=== PATIENT | female | born 1975 | race Caucasian/White ===

== ENCOUNTER 2018-05-11 10:49 | Outpatient (REF) | payer MEDICAID, SELFPAY ==
[2018-05-11 13:07] LABS: HCT 45.1 % (36.0-46.0); HGB 15.1 g/dL (12.0-15.5); Mean Corp. HGB Concentration 33.5 g/dL (32.0-36.0); Mean Corpuscular Hemoglobin 34.6 pg (27.0-33.0); Mean Corpuscular Volume 103.2 fL (80-95); Mean Platelet Volume 8.6 fL (8.0-11.0); Platelet Count 467 x1000/uL (130-400); RBC 4.37 m/cumm (4.00-5.20); RBC Distribution Width 13.5 % (11.7-14.6); White Blood Cell Count 9.95 k/cumm (4.4-10.8)
[2018-05-11 13:08] LABS: ALT 22 U/L (12-78); AST 20 U/L (15-37); Albumin 3.5 g/dL (3.4-5.0); Alkaline Phosphatase 67 U/L (46-116); Anion Gap 9.5 mmol/L (3-11); BUN 9 mg/dL (7-18); Bilirubin, Total 0.4 mg/dL (0.2-1.0); CO2 26.5 mmol/L (21.0-32.0); CREATININE 0.76 mg/dL (0.55-1.02); Chloride 103 mmol/L (98-107); Glucose 80 mg/dL (70-100); Potassium 4.3 mmol/L (3.5-5.1); Sodium 139 mmol/L (136-145); Total Protein 6.9 g/dL (6.4-8.2)
== END 2018-05-11 11:09 ==
LOC: NCHCN 10:49
PROVIDERS: PCP Nurse Practitioner; Visit Provider Nurse Practitioner
DX: N92.4 Excessive bleeding in the premenopausal period (principal); E87.6 Hypokalemia
CPT/HCPCS: 80053; 85027

== ENCOUNTER 2018-05-23 16:04 | Outpatient (REF) | payer MEDICAID, SELFPAY ==
--- NOTE | 2018-05-23 15:45 | PAPFT_PTH ---
PATIENT: Beena Powell LOC: [facility] U#:[id number] AGE/SX: 42/F ROOM: RE05/23/[address]: CHERYL Matt : 1975 BED: DIS: 05/23/2018 SPEC #: [id number] RECD: 05/23/18 18:18 STATUS: LXEYNahomy REQ #: [id number] SPRING: 05/23/18 15:[address]: Olinda Barrett DEPT: [facility] Cytology RECD BY: Guillermina Kenyon ENTERED: 05/23/18 18:18 SP TYPE: PAPFT OTHR DR: Juana Olson Tissues: 1 - CX/ENDOCX FOR PAP SMEARS Procedures: PAP THIN PREP/UVM Screening HPV DNA PROBE Comments: [id number]
[2018-05-25 15:58] LABS: Chlamydia Result Negative; GC Result Negative; Specimen Description CERVIX
== END 2018-05-23 16:24 ==
LOC: LBN 16:04
PROVIDERS: PCP Nurse Practitioner; Visit Provider Nurse Practitioner Family
DX: Z12.4 Encounter for screening for malignant neoplasm of cervix (principal); Z11.51 Encounter for screening for human papillomavirus (HPV); Z11.3 Encounter for screening for infections with a predominantly sexual mode of transmission
CPT/HCPCS: 87491; 87591; 88142; 87624

== ENCOUNTER 2018-05-23 16:08 | Outpatient (CLI) | payer MEDICAID, SELFPAY ==
[2018-05-23 17:38] LABS: TSH (W/Ref FT4) 2.78 uIU/mL (0.358-3.74)
== END 2018-05-23 16:28 ==
PROVIDERS: PCP Nurse Practitioner; Visit Provider Nurse Practitioner Family
DX: N92.6 Irregular menstruation, unspecified (principal)
CPT/HCPCS: 36415; 84443

== ENCOUNTER 2018-06-10 01:42 | Outpatient (CLI) | payer MEDICAID, SELFPAY ==
--- NOTE | 2018-06-10 13:08 | DI.US_ITS ---
SYMPTOMS/DIAGNOSIS: ABNORMAL VAGINAL BLEEDING, N93.9 PELVIC ULTRASOUND: Transabdominal and transvaginal examination was performed. The uterus is retroverted. The uterus measures 8 cm long x 5.4 cm AP x 6.3 cm transverse. The endometrial stripe is thickened at 1.7 cm. No abnormal increased blood flow or discrete mass is present. The right ovary measures 1.6 x 1.3 x 1.6 cm. There is a 1.4 cm simple cyst on the right ovary. There is normal blood flow to the right ovary. No evidence of torsion is seen. The left ovary measures 1.9 x 1.2 x 1.7 cm. There is normal blood flow. No evidence of torsion. There is a 1.4 x 1.2 x 1.4 cm involutional cyst present. No significant free pelvic fluid or hydronephrosis is identified. IMPRESSION: Thickened endometrial stipe without discrete mass. A follow-up pelvic ultrasound is requested for reevaluation. The follow-up examination should be obtained in six to eight weeks.
== END 2018-06-10 02:02 ==
PROVIDERS: PCP Nurse Practitioner; Visit Provider Nurse Practitioner Family
DX: N93.9 Abnormal uterine and vaginal bleeding, unspecified (principal); R93.89 Abnormal findings on diagnostic imaging of other specified body structures
CPT/HCPCS: 76830; 76856

== ENCOUNTER 2018-06-24 14:58 | Outpatient (REF) | payer MEDICAID, SELFPAY ==
--- NOTE | 2018-06-24 13:50 | ENDOMET_PTH ---
PATIENT: Beena Powell LOC: [facility] U#:[id number] AGE/SX: 42/F ROOM: RE06/24/[address]: Randy Cruz MD : 1975 BED: DIS: 06/24/2018 SPEC #: [id number] RECD: 06/24/18 17:43 STATUS: DEVANTE REQ #: [id number] SPRING: 06/24/18 13:[address]: Randy Cruz DEPT: Surgical Specimen RECD BY: Guillermina Kenyon ENTERED: 06/24/18 17:45 SP TYPE: Endomet OTHR DR: Olinda Barrett, HIV/AIDS CARE NURSEJuana Oquendo Tissues: 1 - ENDOMETRIUM BX/CURRETTE 2 - CERVICAL BIOPSY 3 - ENDOCERVICAL BX/CURRETTE Procedures: GROSS AND MICRO LEVEL 4 Comments: [id number]
== END 2018-06-24 15:18 ==
LOC: LBN 14:58
PROVIDERS: PCP Nurse Practitioner; Visit Provider Obstetrics & Gynecology
DX: N85.8 Other specified noninflammatory disorders of uterus (principal); R87.612 Low grade squamous intraepithelial lesion on cytologic smear of cervix (LGSIL); B97.7 Papillomavirus as the cause of diseases classified elsewhere; N93.9 Abnormal uterine and vaginal bleeding, unspecified
CPT/HCPCS: 88305

== ENCOUNTER 2019-07-03 11:27 | Outpatient (CLI) | payer MEDICAID, SELFPAY ==
--- NOTE | 2019-07-03 10:01 | DI.RAD_ITS ---
EXAM: XR SHOULDER LT COMPLETE 2+V INDICATION: LT SHOULDER PAIN, M25.512. COMPARISON: No exams were available for comparison TECHNIQUE: 2D digital imaging was performed. FINDINGS: There is no significant AC joint spurring or evidence of AC joint widening. The glenohumeral joint a ppears intact. No tendon or joint space calcifications are seen. No rib fractures or pneumothorax i s seen. IMPRESSION: Negative left shoulder.
== END 2019-07-03 11:47 ==
PROVIDERS: PCP Nurse Practitioner; Visit Provider Nurse Practitioner
DX: M25.512 Pain in left shoulder (principal)
CPT/HCPCS: 73030

== ENCOUNTER 2019-08-24 11:26 | Outpatient (REF) | payer MEDICAID, SELFPAY ==
[2019-08-28 12:06] LABS: COVID-19 RT-PCR Result Not Detected (NotDetected)
== END 2019-08-24 11:46 ==
LOC: NCHCN 11:26
PROVIDERS: PCP Nurse Practitioner; Visit Provider Physician Assistant
DX: Z20.828 Contact with and (suspected) exposure to other viral communicable diseases (principal); R05 Cough
CPT/HCPCS: U0003

== ENCOUNTER 2019-11-13 14:00 | Outpatient (CLI) | payer MEDICAID, SELFPAY ==
--- NOTE | 2019-11-13 | DI.RAD_ITS ---
EXAM: XR CHEST 2V PA LATERAL CLINICAL HISTORY: ASTHMA J45.909 TECHNIQUE: 2D digital imaging was performed. COMPARISON: No exams were available for comparison FINDINGS: MEDIASTINUM: Normal. HEART: Normal. PULMONARY VASCULATURE: Normal. LUNGS: Clear. There is hyperexpansion of the lungs suggesting underlying COPD. PLEURAL SPACE: No pleural effusion or pneumothorax. BONE:Normal. OTHER FINDINGS:Normal. IMPRESSION: Hyperexpansion of the lungs suggesting underlying COPD. DATA REPOSITORY: RADIATION DOSE DELIVERED:
== END 2019-11-13 14:20 ==
PROVIDERS: PCP Nurse Practitioner; Visit Provider Internal Medicine
DX: J45.909 Unspecified asthma, uncomplicated (principal); J44.9 Chronic obstructive pulmonary disease, unspecified
CPT/HCPCS: 71046

== ENCOUNTER 2019-11-20 08:20 | Outpatient (CLI) | payer MEDICAID, SELFPAY ==
[2019-11-21 14:18] LABS: COVID-19 RT-PCR UVMMC Result Negative (Negative)
== END 2019-11-20 08:40 ==
PROVIDERS: PCP Nurse Practitioner; Visit Provider Family Medicine
DX: Z11.59 Encounter for screening for other viral diseases (principal)
CPT/HCPCS: U0003

== ENCOUNTER 2019-11-22 04:20 | Outpatient (CLI) | payer MEDICAID, SELFPAY ==
--- NOTE | 2019-11-23 08:44 | W.PFT ---
Date of service: 11/22/19 Time of Service: 10:22 Pulmonary Function Test Result Interpretation Spirometry: very severe Obstructive airways disease with some but not significant bronchodilator response Impression Extremely severe obstructive airways disease with some but not significant bronchodilator response. Clinical correlation recommended. Clinical Correlation therefore is recommended.
== END 2019-11-22 04:40 ==
PROVIDERS: PCP Nurse Practitioner; Visit Provider Internal Medicine
DX: J45.909 Unspecified asthma, uncomplicated (principal); R06.09 Other forms of dyspnea; F17.210 Nicotine dependence, cigarettes, uncomplicated
CPT/HCPCS: 94060

== ENCOUNTER 2020-04-26 11:48 | Outpatient (REF) | payer MEDICAID, SELFPAY | END 2020-04-26 12:08 | LOC: NCHCN 11:48 | PROVIDERS: PCP Nurse Practitioner; Visit Provider Nurse Practitioner | DX: N92.6 Irregular menstruation, unspecified (principal); N93.8 Other specified abnormal uterine and vaginal bleeding | CPT/HCPCS: 84443 ==

== ENCOUNTER 2020-11-11 13:39 | Outpatient (REF) | payer MEDICAID, SELFPAY ==
[2020-11-11 16:02] LABS: ALT 61 U/L (14-59); AST 70 U/L (15-37); Albumin 3.3 g/dL (3.4-5.0); Alkaline Phosphatase 99 U/L (46-116); Anion Gap 12.9 mmol/L (3-11); BUN 3 mg/dL (7-18); Bilirubin, Total 0.4 mg/dL (0.2-1.0); CO2 24.1 mmol/L (21.0-32.0); CREATININE 0.6 mg/dL (0.55-1.02); Calculated LDL 62 mg/dL (<100); Chloride 101 mmol/L (98-107); Cholesterol 174 mg/dL (<200); Glucose 81 mg/dL (74-106); HDL Cholesterol 100 mg/dL (40-60); Potassium 3.7 mmol/L (3.5-5.1); Sodium 138 mmol/L (136-145); TSH (W/Ref FT4) 1.04 uIU/mL (0.36-3.74); Triglyceride 63 mg/dL (<150)
== END 2020-11-11 13:40 | disposition home or self-care (01) ==
LOC: NCHCN 13:39
PROVIDERS: PCP Nurse Practitioner; Visit Provider Nurse Practitioner
DX: E03.9 Hypothyroidism, unspecified (principal); F32.9 Major depressive disorder, single episode, unspecified; J45.50 Severe persistent asthma, uncomplicated; Z13.220 Encounter for screening for lipoid disorders
CPT/HCPCS: 80053; 80061; 84443

== ENCOUNTER 2020-12-20 11:25 | Outpatient (REF) | payer MEDICAID, SELFPAY ==
[2020-12-20 14:48] LABS: ALT 40 U/L (14-59); AST 48 U/L (15-37); Albumin 3.3 g/dL (3.4-5.0); Alkaline Phosphatase 88 U/L (46-116); Bilirubin, Direct 0.2 mg/dL (0.0-0.2); Bilirubin, Total 0.5 mg/dL (0.2-1.0)
== END 2020-12-20 11:26 | disposition home or self-care (01) ==
LOC: NCHCN 11:25
PROVIDERS: PCP Nurse Practitioner; Visit Provider Nurse Practitioner
DX: R79.89 Other specified abnormal findings of blood chemistry (principal)
CPT/HCPCS: 80076

== ENCOUNTER 2021-08-29 20:42 | Outpatient (REF) | payer MEDICAID, SELFPAY ==
[2021-08-29 19:46] LABS: Abs Immature Grans 0.03 10^3/uL (0.0-0.06); Absolute Basophil Count 0.06 10^3/uL (0.0-0.2); Absolute Eosinophil Count 0.02 10^3/uL (0.0-0.7); Absolute Lymphocyte Count 3.22 10^3/uL (1.2-3.4); Absolute Monocyte Count 0.67 10^3/uL (0.1-0.8); Absolute Neutrophil Count 3.28 10^3/uL (1.2-6.7); Basophils % 0.8; Eosinophils % 0.3; HCT 43.3 % (36.0-46.0); HGB 14.4 g/dL (11.2-15.7); Immature Grans % 0.4; Lymphocytes % 44.2; MCH 34.3 pg (27.0-33.0); MCHC 33.3 % (32.0-36.0); MCV 103.1 fL (80-95); Monocytes % 9.2; Neutrophils % 45.1; Nucleated RBC 0 %; Platelet Count 357 10^3/uL (130-400); RDW 12.6 % (11.7-14.6); RDW-SD 47.8 fL; WBC 7.28 10^3/uL (4.4-10.8)
[2021-08-29 20:15] LABS: ALT 17 U/L (14-59); AST 25 U/L (15-37); Albumin 3.6 g/dL (3.4-5.0); Alkaline Phosphatase 89 U/L (46-116); Anion Gap 14.1 mmol/L (3-11); BUN 4 mg/dL (7-18); Bilirubin, Total 0.3 mg/dL (0.2-1.0); C-Reactive Protein 0.47 mg/dL (0.0-0.3); CO2 19.9 mmol/L (21.0-32.0); CREATININE 0.6 mg/dL (0.55-1.02); Calcium 8.5 mg/dL (8.5-10.1); Chloride 99 mmol/L (98-107); Glucose 77 mg/dL (74-106); Potassium 3.7 mmol/L (3.5-5.1); Sodium 133 mmol/L (136-145); Total Protein 6.9 g/dL (6.4-8.2)
[2021-08-29 20:48] LABS: ESR 14 mm/hr (0-20)
[2021-08-30 22:12] LABS: Rheumatoid Factor <8.6 IU/mL (<12.0)
[2021-09-01 11:24] LABS: Lyme Ab w Rflx to Lyme Confirm Negative (Negative)
[2021-09-01 14:58] LABS: ANA Interpretation Negative (Negative)
[2021-09-02 18:41] LABS: Anaplasma phagocytophilum Negative (Negative); B. miyamotoi PCR Negative (Negative); Babesia divergens/MO-1 Negative (Negative); Babesia duncani Negative (Negative); Babesia microti Negative (Negative); Ehrlichia chaffeensis Negative (Negative); Ehrlichia ewingii/canis Negative (Negative); Ehrlichia muris eauclairensis Negative (Negative)
== END 2021-08-29 20:43 | disposition home or self-care (01) ==
LOC: NCHCN 20:42
PROVIDERS: PCP Nurse Practitioner; Visit Provider Nurse Practitioner Family
DX: R79.89 Other specified abnormal findings of blood chemistry (principal); M25.59 Pain in other specified joint
CPT/HCPCS: 80053; 85652; 87798; 85025; 86038; 86140; 86431; 86618

== ENCOUNTER 2021-10-21 11:48 | Outpatient (CLI) | payer MEDICAID, SELFPAY ==
--- NOTE | 2021-10-21 11:15 | DI.RAD_ITS ---
Exam(s) XR SHOULDER LT COMPLETE 2+V EXAM: XR SHOULDER LT COMPLETE 2+V CLINICAL HISTORY: left shoulder pain. TECHNIQUE: 2D digital imaging was performed. COMPARISON: CR XR SHOULDER LT COMPLETE 2+V from 07/03/2019 FINDINGS: Two views There is no evidence of fracture or dislocation. However, there is slight upward subluxation of the humeral head in the glenoid fossa when compared to the June 2019 study. The subacromial space its elf is not diminished and there is no calcifications therein. No obvious degenerative changes in the glenohumeral joint. Minimal degenerative changes in the AC joint. No significant osseous lesions. Bone density is normal. IMPRESSION: Mild upward subluxation of the humeral head in the glenoid fossa but without significant diminution o f the subacromial space. DATA REPOSITORY: RADIATION DOSE DELIVERED:
== END 2021-10-21 11:49 | disposition home or self-care (01) ==
LOC: DIORS 11:49
PROVIDERS: PCP Nurse Practitioner Family; Referring Provider Nurse Practitioner Family; Visit Provider Student in an Organized Health Care Education/Training Program
DX: M25.512 Pain in left shoulder (principal); S43.082A Other subluxation of left shoulder joint, initial encounter
CPT/HCPCS: 73030

== ENCOUNTER → 2021-11-10 02:21 | Outpatient (CLI) | payer MEDICAID, SELFPAY ==
--- NOTE | 2021-11-10 08:30 | DI.MRI_ITS ---
Exam(s) MR UPPER JOINT LT WO EXAM: MR UPPER JOINT LT WO CLINICAL HISTORY: LEFT SHOULDER PAIN,bursitis, cervical radiculopathy,m75.52,m54.12. TECHNIQUE: Multiplanar multisequence MRI was performed. COMPARISON: None. FINDINGS: The exam is limited due to patient motion. There is no fracture or contusion pattern. The acromioclavicular joint is normal. No subacromial, subcoracoid or glenohumeral joint effusion is present. The supraspinatus tendonappears intact. The infraspinatus tendon is intact. The subscapularis and teres minor tendons are normal. The biceps tendon is normally located. . The labrum is grossly normal. IMPRESSION: Limited exam due to patient motion. No evidence of rotator cuff tear. DATA REPOSITORY:
== END ==
PROVIDERS: PCP Nurse Practitioner Family; Visit Provider Student in an Organized Health Care Education/Training Program
DX: M54.12 Radiculopathy, cervical region (principal); M75.52 Bursitis of left shoulder
CPT/HCPCS: 73221

== ENCOUNTER 2022-03-18 18:32 | Outpatient (REF) | payer MEDICAID, SELFPAY ==
[2022-03-18 15:14] LABS: Abs Immature Grans 0.06 10^3/uL (0.0-0.06); Absolute Basophil Count 0.08 10^3/uL (0.0-0.2); Absolute Lymphocyte Count 3.83 10^3/uL (1.2-3.4); Absolute Monocyte Count 0.98 10^3/uL (0.1-0.8); Basophils % 0.7; Eosinophils % 0.4; HCT 41.3 % (36.0-46.0); HGB 14.1 g/dL (11.2-15.7); Immature Grans % 0.5; Lymphocytes % 34.2; MCH 35.5 pg (27.0-33.0); MCHC 34.1 % (32.0-36.0); MCV 104 fL (80-95); MPV 8.7 fL (8.0-11.0); Monocytes % 8.7; Neutrophils % 55.5; Platelet Count 359 10^3/uL (130-400); RBC 3.97 10^6/uL (3.93-5.22); RDW 13.3 % (11.7-14.6); RDW-SD 50.9 fL; WBC 11.21 10^3/uL (4.4-10.8)
[2022-03-18 15:16] LABS: Absolute Eosinophil Count 0.04 10^3/uL (0.0-0.7); Absolute Neutrophil Count 6.22 10^3/uL (1.2-6.7)
[2022-03-18 15:30] LABS: ALT 23 U/L (14-59); AST 29 U/L (15-37); Albumin 3.5 g/dL (3.4-5.0); Alkaline Phosphatase 92 U/L (46-116); Anion Gap 13.9 mmol/L (3-11); BUN 5 mg/dL (7-18); Bilirubin, Total 0.2 mg/dL (0.2-1.0); CO2 20.1 mmol/L (21.0-32.0); CREATININE 0.5 mg/dL (0.55-1.02); Calcium 8.9 mg/dL (8.5-10.1); Chloride 103 mmol/L (98-107); Estimated GFR 117.07 (mL/min/1.73m2); Glucose 88 mg/dL (74-106); Potassium 3.7 mmol/L (3.5-5.1); Sodium 137 mmol/L (136-145); TSH (W/Ref FT4) 2.12 uIU/mL (0.36-3.74)
== END 2022-03-18 18:33 | disposition home or self-care (01) ==
LOC: NCHCN 18:32
PROVIDERS: Visit Provider Nurse Practitioner Family
DX: E03.9 Hypothyroidism, unspecified (principal); M25.59 Pain in other specified joint; R79.89 Other specified abnormal findings of blood chemistry; J44.9 Chronic obstructive pulmonary disease, unspecified; J45.50 Severe persistent asthma, uncomplicated
CPT/HCPCS: 80053; 84443; 85025

== ENCOUNTER 2022-11-11 16:39 | Outpatient (REF) | payer MEDICAID, SELFPAY ==
[2022-11-11 16:32] LABS: Abs Immature Grans 0.04 10^3/uL (0.0-0.06); Absolute Basophil Count 0.08 10^3/uL (0.0-0.2); Absolute Eosinophil Count 0.05 10^3/uL (0.0-0.7); Absolute Monocyte Count 0.86 10^3/uL (0.1-0.8); Absolute Neutrophil Count 5.09 10^3/uL (1.2-6.7); Basophils % 0.8; Eosinophils % 0.5; HCT 42.4 % (36.0-46.0); HGB 14.8 g/dL (11.2-15.7); Immature Grans % 0.4; Lymphocytes % 40.7; MCH 36.2 pg (27.0-33.0); MCHC 34.9 % (32.0-36.0); MCV 104 fL (80-95); MPV 8.9 fL (8.0-11.0); Monocytes % 8.3; Neutrophils % 49.3; Platelet Count 353 10^3/uL (130-400); RBC 4.09 10^6/uL (3.93-5.22); RDW 12.1 % (11.7-14.6); RDW-SD 46.5 fL; WBC 10.32 10^3/uL (4.4-10.8)
[2022-11-11 17:18] LABS: ALT 20 U/L (14-59); AST 18 U/L (15-37); Albumin 3.9 g/dL (3.4-5.0); Alkaline Phosphatase 86 U/L (46-116); BUN 4 mg/dL (7-18); Bilirubin, Total 0.4 mg/dL (0.2-1.0); CREATININE 0.5 mg/dL (0.55-1.02); Chloride 101 mmol/L (98-107); Estimated GFR 116.34 (mL/min/1.73m2); Glucose 81 mg/dL (74-106); Potassium 3.9 mmol/L (3.5-5.1); Sodium 137 mmol/L (136-145); TSH (W/Ref FT4) 5.96 uIU/mL (0.36-3.74); Total Protein 7.1 g/dL (6.4-8.2); Vitamin B12 309 pg/mL (193-986)
[2022-11-11 18:00] LABS: FREE T4 1.01 ng/dL (0.76-1.46)
== END 2022-11-11 16:40 | disposition home or self-care (01) ==
LOC: NCHCN 16:39
PROVIDERS: Visit Provider Nurse Practitioner Family
DX: E03.9 Hypothyroidism, unspecified (principal); R23.8 Other skin changes; E53.8 Deficiency of other specified B group vitamins; G47.20 Circadian rhythm sleep disorder, unspecified type
CPT/HCPCS: 80053; 82607; 84439; 84443; 85025

== ENCOUNTER 2023-01-20 15:29 | Outpatient (CLI) | payer MEDICAID, SELFPAY ==
--- NOTE | 2023-01-20 06:00 | DI.RAD_ITS ---
Exam(s) XR PAIN CLINIC SACRIOILIAC 2V EXAM: XR PAIN CLINIC SACRIOILIAC 2V CLINICAL HISTORY: Dx: Sacroiliac Joint Dysfunction TECHNIQUE: 2D and realtime digital imaging was performed. Radiologist not present. CONTRAST MATERIAL: None. COMPARISON: No exams were available for comparison FINDINGS: Fluoroscopy was provided for pain management therapy. Please refer to procedure report or details. Radiation Exposure Index: Ka,r=3.83 mGy IMPRESSION: As above. RADIATION DOSE DELIVERED:
[2023-01-20 15:49] VITALS: BP 111/81; PULSE 104; RESP 20; TEMP 36.7; O2SAT 96
--- NOTE | 2023-01-20 16:27 | PDOC.PAIN ---
Date of service: 01/20/23 Time of Service: 16:27 Pain Managment Procedure Note Procedure Note Procedure Note: PROCEDURE NOTE BILATERAL INTRA-ARTICULAR SACROILIAC JOINT INJECTION Date of Service: January 20, 2023 Patient: Beena Powell Provider: Олег Galeano DO, MPH COMMENTS: I previously evaluated the patient in the office and their symptoms in relation to the sacroiliac joint pain have remained the same. She does have an allergy to local anesthetics and this family of medication was eliminated. She understands that she may have a little more pain with this procedure without the local anesthetic and that it is not expected that she would have immediate pain relief directly after this procedure. She understands and does agree. Pre-operative diagnosis: Sacroiliac joint dysfunction Post-operative diagnosis: Same Pre-procedure pain: VAS= 8/10 Beena Powell has been referred to our [facility] for a Bilateral intra-articular Sacroiliac joint injection. Beena was interviewed and the medical record reviewed. There were no medical, pharmacologic, radiographic or other structural contraindications to attempting a fluoroscopically-guided, contrast-enhanced, intra-articular Sacroiliac joint injection. The risks, benefits, and potential side effects of this procedure were reviewed with the patient. Questions and concerns were addressed. After it was clear that Beena was fully informed about the procedure, the printed consent form was signed by the patient and myself. Beena was placed in the prone position on the fluoroscopy table and an automated blood pressure cuff, 3 lead EKG, and pulse oximeter were applied. The skin entry point for approaching the Left sacroiliac joint was identified under the most advantageous fluoroscopic view and marked. First, I used Chlorhexadine preparation of the skin and draping with sterile surgical drapes. Next, a 1.5 25G skin needle was placed under fluoroscopic guidance into the Left sacroiliac joint. Intra-articular placement was confirmed by a clear arthrogram resulting from the injection of 0.25ml of Omnipaque-240. Next, 1 ml of Depo- Medrol 40 mg/ml was injected intra-articularly with an initial reproduction of a significant component of the usual pain. This was followed with 1 ml of preservative-free normal saline. The needle was then removed without difficulty. (49 ml of Omnipaque-240 was wasted). The exact procedure was completed on the opposite sacroiliac joint. Beena's vital signs were stable throughout the procedure and were as recorded in nursing records. Follow up plans and appointments were discussed with Beena. Post procedure instructions were given as documented in nursing records. Having met discharge criteria, Beena was [facility] from the [facility]. COMMENTS: Post-procedure pain: VAS= 6/10. If the patient receives at least 50% improvement in pain and/or function for at least 3 months, this procedure can be repeated if needed. I personally performed this entire procedure. ОЛЕГ GALEANO DO, MPH ABPMR-subspecialty board certification in Pain Medicine [facility] [facility]
[2023-01-20] MEDS: Normal Saline 20 ML VIAL (16:28)
[2023-01-20] MEDS: methylPREDNISolone ACETATE 80 MG/ML VIAL IJ (16:29)
[2023-01-20 16:32] VITALS: BP 137/87; PULSE 91; RESP 15; O2SAT 100
[2023-01-20 16:42] VITALS: BP 130/79; PULSE 93; RESP 16; O2SAT 100
[2023-01-20 16:49] VITALS: BP 123/78; PULSE 87; RESP 16; O2SAT 100
== END 2023-01-20 15:30 | disposition home or self-care (01) ==
PROVIDERS: Visit Provider Preventive Medicine Occupational Medicine
DX: M46.1 Sacroiliitis, not elsewhere classified (principal)
CPT/HCPCS: 27096; 72200; J1040

== ENCOUNTER 2023-02-02 17:13 | Outpatient (REF) | payer MEDICAID, SELFPAY ==
[2023-02-02 16:48] LABS: TSH (W/Ref FT4) 0.12 uIU/mL (0.36-3.74)
[2023-02-02 18:11] LABS: FREE T4 1.36 ng/dL (0.76-1.46)
== END 2023-02-02 17:14 | disposition home or self-care (01) ==
LOC: NCHCN 17:13
PROVIDERS: Visit Provider Nurse Practitioner Family
DX: E03.9 Hypothyroidism, unspecified (principal)
CPT/HCPCS: 84439; 84443

== ENCOUNTER 2023-05-04 16:10 | Outpatient (REF) | payer MEDICAID, SELFPAY ==
[2023-05-04 15:36] LABS: TSH (W/Ref FT4) 0.84 uIU/mL (0.36-3.74)
== END 2023-05-04 16:11 | disposition home or self-care (01) ==
LOC: NCHCN 16:10
PROVIDERS: PCP Nurse Practitioner Family; Visit Provider Nurse Practitioner Family
DX: E03.9 Hypothyroidism, unspecified (principal)
CPT/HCPCS: 84443

== ENCOUNTER 2023-07-02 01:19 | Outpatient (RCR) | payer MEDICAID, SELFPAY ==
[2023-07-02] MEDS: MEPOLIZUMAB 100 MG/ML SC (11:10)
== END 2023-07-07 23:59 | disposition home or self-care (01) ==
LOC: INF 01:19
PROVIDERS: PCP Nurse Practitioner Family; Visit Provider Student in an Organized Health Care Education/Training Program
DX: J44.9 Chronic obstructive pulmonary disease, unspecified
CPT/HCPCS: 96372; J2182

== ENCOUNTER 2023-07-30 00:58 | Outpatient (RCR) | payer MEDICAID, SELFPAY ==
[2023-07-30] MEDS: MEPOLIZUMAB 100 MG/ML SC (11:24)
== END 2023-08-05 23:59 | disposition home or self-care (01) ==
LOC: INF 00:58
PROVIDERS: PCP Nurse Practitioner Family; Visit Provider Student in an Organized Health Care Education/Training Program
DX: J44.9 Chronic obstructive pulmonary disease, unspecified (principal)
CPT/HCPCS: 96372; J2182

== ENCOUNTER 2023-08-27 00:57 | Outpatient (RCR) | payer MEDICAID, SELFPAY ==
[2023-08-27] MEDS: MEPOLIZUMAB 100 MG/ML SC (11:35)
== END 2023-09-05 23:59 | disposition home or self-care (01) ==
LOC: INF 00:57
PROVIDERS: PCP Nurse Practitioner Family; Visit Provider Student in an Organized Health Care Education/Training Program
DX: J44.9 Chronic obstructive pulmonary disease, unspecified (principal)
CPT/HCPCS: 96372; J2182

== ENCOUNTER 2023-09-24 01:42 | Outpatient (RCR) | payer MEDICAID, SELFPAY ==
[2023-09-24] MEDS: MEPOLIZUMAB 100 MG/ML SC (11:23)
== END 2023-10-05 23:59 | disposition home or self-care (01) ==
LOC: INF 01:42
PROVIDERS: PCP Nurse Practitioner Family; Visit Provider Student in an Organized Health Care Education/Training Program
DX: J44.9 Chronic obstructive pulmonary disease, unspecified (principal)
CPT/HCPCS: 96372; J2182

== ENCOUNTER 2023-10-22 01:37 | Outpatient (RCR) | payer MEDICAID, SELFPAY ==
[2023-10-22] MEDS: MEPOLIZUMAB 100 MG/ML SC (11:03)
== END 2023-11-05 23:59 | disposition home or self-care (01) ==
LOC: INF 01:37
PROVIDERS: PCP Nurse Practitioner Family; Visit Provider Student in an Organized Health Care Education/Training Program
DX: J44.9 Chronic obstructive pulmonary disease, unspecified (principal)
CPT/HCPCS: 96372; J2182

== ENCOUNTER 2023-11-19 01:23 | Outpatient (RCR) | payer MEDICAID, SELFPAY ==
[2023-11-19] MEDS: MEPOLIZUMAB 100 MG/ML SC (10:43)
== END 2023-12-05 23:59 | disposition home or self-care (01) ==
LOC: INF 01:23
PROVIDERS: PCP Nurse Practitioner Family; Visit Provider Student in an Organized Health Care Education/Training Program
DX: J44.9 Chronic obstructive pulmonary disease, unspecified (principal)
CPT/HCPCS: 96372; J2182

== ENCOUNTER 2024-01-27 12:27 | Outpatient (REF) | payer MEDICAID, SELFPAY ==
[2024-01-27 19:33] LABS: HCT 44.7 % (36.0-46.0); MCH 34.8 pg (27.0-33.0); MCHC 33.6 % (32.0-36.0); MCV 104 fL (80-95); MPV 8.9 fL (8.0-11.0); Platelet Count 349 10^3/uL (130-400); RBC 4.31 10^6/uL (3.93-5.22); RDW 12.4 % (11.7-14.6); RDW-SD 47.6 fL; WBC 9.23 10^3/uL (4.4-10.8)
[2024-01-27 19:58] LABS: ALT 28 U/L (14-59); AST 32 U/L (15-37); Albumin 3.6 g/dL (3.4-5.0); Alkaline Phosphatase 85 U/L (46-116); Anion Gap 11.7 mmol/L (3-11); BUN 7 mg/dL (7-18); Bilirubin, Total 0.38 mg/dL (0.2-1.0); CO2 22.3 mmol/L (21.0-32.0); CREATININE 0.7 mg/dL (0.55-1.02); Chloride 102 mmol/L (98-107); Estimated GFR 106.62 (mL/min/1.73m2); Glucose 73 mg/dL (74-106); Potassium 3.7 mmol/L (3.5-5.1); Sodium 136 mmol/L (136-145); TSH (W/Ref FT4) 8.26 uIU/mL (0.36-3.74); Total Protein 7.1 g/dL (6.4-8.2)
[2024-01-27 20:16] LABS: FREE T4 1.01 ng/dL (0.76-1.46)
== END 2024-01-27 12:28 | disposition home or self-care (01) ==
LOC: NCHCN 12:27
PROVIDERS: PCP Nurse Practitioner Family; Visit Provider Nurse Practitioner Family
DX: F41.8 Other specified anxiety disorders (principal); J44.9 Chronic obstructive pulmonary disease, unspecified; E03.9 Hypothyroidism, unspecified
CPT/HCPCS: 80053; 85027; 84439; 84443

== ENCOUNTER 2024-02-04 01:02 | Outpatient (RCR) | payer MEDICAID, SELFPAY ==
[2024-01-07] MEDS: MEPOLIZUMAB 100 MG/ML SC (11:38)
[2024-02-04] MEDS: MEPOLIZUMAB 100 MG/ML SC (11:06)
== END 2024-02-05 23:59 | disposition home or self-care (01) ==
LOC: INF 01:02
PROVIDERS: PCP Nurse Practitioner Family; Visit Provider Student in an Organized Health Care Education/Training Program
DX: J44.9 Chronic obstructive pulmonary disease, unspecified (principal)
CPT/HCPCS: 96372; J2182

== ENCOUNTER 2024-03-03 01:42 | Outpatient (RCR) | payer MEDICAID, SELFPAY ==
[2024-03-03] MEDS: MEPOLIZUMAB 100 MG/ML SC (11:16)
== END 2024-03-06 23:59 | disposition home or self-care (01) ==
LOC: INF 01:42
PROVIDERS: PCP Nurse Practitioner Family; Visit Provider Student in an Organized Health Care Education/Training Program
DX: J44.9 Chronic obstructive pulmonary disease, unspecified (principal)
CPT/HCPCS: 96372; J2182

== ENCOUNTER 2024-03-31 00:54 | Outpatient (RCR) | payer MEDICAID, SELFPAY ==
[2024-03-31] MEDS: MEPOLIZUMAB 100 MG/ML SC (11:04)
== END 2024-04-06 23:59 | disposition home or self-care (01) ==
LOC: INF 00:54
PROVIDERS: PCP Nurse Practitioner Family; Visit Provider Student in an Organized Health Care Education/Training Program
DX: J44.9 Chronic obstructive pulmonary disease, unspecified
CPT/HCPCS: 96372; J2182

== ENCOUNTER 2024-04-12 12:10 | Outpatient (REF) | payer MEDICAID, SELFPAY ==
[2024-04-12 16:18] LABS: TSH (W/Ref FT4) 3.12 uIU/mL (0.36-3.74)
== END 2024-04-12 12:11 | disposition home or self-care (01) ==
LOC: NCHCN 12:10
PROVIDERS: PCP Nurse Practitioner Family; Visit Provider Nurse Practitioner Family
DX: E03.9 Hypothyroidism, unspecified (principal)
CPT/HCPCS: 84443

== ENCOUNTER 2024-04-28 02:13 | Outpatient (RCR) | payer MEDICAID, SELFPAY ==
[2024-04-28] MEDS: MEPOLIZUMAB 100 MG/ML SC (10:53)
== END 2024-05-06 23:59 | disposition home or self-care (01) ==
LOC: INF 02:13
PROVIDERS: PCP Nurse Practitioner Family; Visit Provider Student in an Organized Health Care Education/Training Program
DX: J45.50 Severe persistent asthma, uncomplicated
CPT/HCPCS: 96372; J2182

== ENCOUNTER 2024-06-14 02:20 | Outpatient (CLI) | payer MEDICAID, SELFPAY ==
--- NOTE | 2024-06-14 10:34 | DI.RAD_ITS ---
Exam(s) XR FOOT RT COMPLETE EXAM: XR FOOT RT COMPLETE CLINICAL HISTORY: PAIN RT FOOT M79.671 INJURY 05/07/24-NO IMPROVEMENT, INCREASE PAIN SWELLING. TECHNIQUE: 2D digital imaging was performed of the right foot. Three images were obtained. AP, obl ique and lateral views were obtained. COMPARISON: CR XR Foot Complete 3+ Views Right from 05/07/2024 FINDINGS: BONES: No evidence of an acute or healing fracture or dislocation. No bony destructive lesion is see n. JOINTS: No dislocation present. SOFT TISSUE: Normal. IMPRESSION: No acute abnormality. DATA REPOSITORY: RADIATION DOSE DELIVERED:
== END 2024-06-14 02:40 ==
LOC: DI 02:20
PROVIDERS: PCP Nurse Practitioner Family; Visit Provider Nurse Practitioner Family
DX: M79.671 Pain in right foot (principal)
CPT/HCPCS: 73630

== ENCOUNTER 2024-07-25 02:27 | Outpatient (CLI) | payer MEDICAID, SELFPAY ==
--- NOTE | 2024-07-25 13:45 | DI.RAD_ITS ---
Exam(s) XR FOOT RT COMPLETE EXAM: XR FOOT RT COMPLETE CLINICAL HISTORY: Right foot pain,M79.671. TECHNIQUE: 2D digital imaging was performed of the right foot. Three images were obtained. AP, obl ique and lateral views were obtained. COMPARISON: CR XR Foot Complete 3+ Views Right from 05/07/2024 CR XR FOOT RT COMPLETE from 06/14/2024 FINDINGS: BONES: No acute fracture is present. No bony destructive lesion is seen. JOINTS: No dislocation present. SOFT TISSUE: Normal. IMPRESSION: Unremarkable radiographs of the right foot. Concern for internal derangement, an MRI should be consid ered for further evaluation. DATA REPOSITORY: RADIATION DOSE DELIVERED:
== END 2024-07-25 02:47 ==
LOC: DI 02:27
PROVIDERS: PCP Nurse Practitioner Family; Visit Provider Podiatrist
DX: M79.671 Pain in right foot (principal)
CPT/HCPCS: 73630

== ENCOUNTER 2024-08-11 00:18 | Outpatient (CLI) | payer MEDICAID, SELFPAY ==
--- NOTE | 2024-08-11 07:45 | DI.MRI_ITS ---
Exam(s) MR LOWER EXTREMITY RT WO EXAM: MR LOWER EXTREMITY RT WO CLINICAL HISTORY: midfoot, forefoot pain,CONTUSION,S90.31XA,M79.673 TECHNIQUE: Multiplanar multisequence MRI was performed. COMPARISON: CR XR Foot Complete 3+ Views Right from 05/07/2024 CR XR FOOT RT COMPLETE from 06/14/2024 CR XR FOOT RT COMPLETE from 07/25/2024 FINDINGS: MARROW:There is a transverse fracture of the distal phalanx of the 5th toe with no significant displa cement. There is some surrounding edema in the 5th toe and web space between the 4th and 5th toes. There are no fractures evident in the 4th toe phalanges. There are no metatarsal fractures. No othe r acute or subacute fractures identified in the foot. Main Lisfranc joint and ligament appear intact . ARTICULATIONS: Great toe metatarsophalangeal joint and other MTP joints appear unremarkable. The ses amoid bones subjacent to the great toe metatarsal head appear unremarkable. No obvious plantar plate findings. Tarsometatarsal joints appear unremarkable. There are no obvious degenerative changes in these articulations and there are no erosions. No evidence of osteomyelitis. TENDONS: No tendon tears nor tenosynovitis evident. MUSCLES: There is no evidence of abnormal signal nor mass in the visualized muscles. EXTRAMUSCULAR SOFT TISSUES: No evidence of Sue's interdigital neuroma nor other significant soft t issue masses. No evidence of soft tissue abscess. OTHER: None. IMPRESSION: 1. The main finding here is a nondisplaced transverse fracture in the distal phalanx of the 5th toe. 2. No Lisfranc joint injury. 3. No significant osteoarthritic degenerative changes nor osseous erosions nor incidental significant osseous lesions. DATA REPOSITORY:
== END 2024-08-11 00:38 ==
LOC: DI 00:18
PROVIDERS: PCP Nurse Practitioner Family; Visit Provider Podiatrist
DX: S90.31XA Contusion of right foot, initial encounter (principal); M79.671 Pain in right foot; S92.534A Nondisplaced fracture of distal phalanx of right lesser toe(s), initial encounter for closed fracture; X58.XXXA Exposure to other specified factors, initial encounter
CPT/HCPCS: 73718

== ENCOUNTER 2024-12-04 01:57 | Outpatient (RCR) | payer MEDICAID, SELFPAY ==
[2024-12-04] MEDS: MEPOLIZUMAB 100 MG/ML SC (11:22)
== END 2024-12-04 23:59 | disposition home or self-care (01) ==
LOC: INF 01:57
PROVIDERS: PCP Nurse Practitioner Family; Visit Provider Hospitalist
DX: J44.89 Other specified chronic obstructive pulmonary disease (principal)
CPT/HCPCS: 96372; J2182

== ENCOUNTER 2024-12-20 14:13 | Outpatient (REF) | payer MEDICAID, SELFPAY ==
[2024-12-20 18:15] LABS: HCT 45.2 % (36.0-46.0); HGB 15.7 g/dL (11.2-15.7); MCH 36.2 pg (27.0-33.0); MCHC 34.7 % (32.0-36.0); MCV 104 fL (80-95); MPV 9.3 fL (8.0-11.0); Platelet Count 404 10^3/uL (130-400); RBC 4.34 10^6/uL (3.93-5.22); RDW 14.0 % (11.7-14.6); RDW-SD 54.4 fL; WBC 8.11 10^3/uL (4.4-10.8)
[2024-12-20 18:28] LABS: Hemoglobin A1C 5.0 % (<5.7)
[2024-12-20 20:27] LABS: ALT 37 U/L (14-59); AST 25 U/L (15-37); Albumin 3.7 g/dL (3.4-5.0); Alkaline Phosphatase 109 U/L (46-116); Anion Gap 11.9 mmol/L (3-11); BUN 4 mg/dL (7-18); Bilirubin, Total 0.2 mg/dL (0.2-1.0); CO2 24.1 mmol/L (21.0-32.0); Calcium 9.3 mg/dL (8.5-10.1); Calculated LDL 107 mg/dL (<100); Chloride 104 mmol/L (98-107); Cholesterol 218 mg/dL (<200); Estimated GFR 114.90 (mL/min/1.73m2); Glucose 95 mg/dL (74-106); HDL Cholesterol 92 mg/dL (>or=50); Potassium 3.8 mmol/L (3.5-5.1); Sodium 140 mmol/L (136-145); TSH (W/Ref FT4) 0.32 uIU/mL (0.36-3.74); Total Protein 6.8 g/dL (6.4-8.2); Triglyceride 99 mg/dL (<150)
== END 2024-12-20 14:14 | disposition home or self-care (01) ==
LOC: NCHCN 14:13
PROVIDERS: PCP Nurse Practitioner Family; Visit Provider Nurse Practitioner Family
DX: J44.9 Chronic obstructive pulmonary disease, unspecified (principal); G89.29 Other chronic pain; E03.9 Hypothyroidism, unspecified; R73.09 Other abnormal glucose; Z13.220 Encounter for screening for lipoid disorders
CPT/HCPCS: 80053; 80061; 85027; 83036; 84439; 84443

== ENCOUNTER 2025-01-02 05:27 | Outpatient (CLI) | payer MEDICAID, SELFPAY ==
[2025-01-02] MEDS: Levalbuterol HFA 15 GM INH 4 PUFF IH (14:31)
[2025-01-02] MEDS: Inhaler, Assist Device 1 EACH MC (14:31)
--- NOTE | 2025-01-03 12:07 | W.PFT ---
Date of service: 01/02/25 Time of Service: 10:21 Pulmonary Function Test Result Indications: Emphysema Impression 1. Good patient effort was noted. ATS standards for reproducibility were met. 2. Spirometry showed very severe obstructive lung disease with an FEV1 of 27% (0.69 L) 3. Following the administration of a bronchodilator there was not a significant response 4. TLC and RV were elevated, consistent with air trapping 5. DLCO was 53%, consistent with a moderate defect in alveolar gas exchange
== END 2025-01-02 05:28 | disposition home or self-care (01) ==
LOC: RT 05:28
PROVIDERS: PCP Nurse Practitioner Family; Visit Provider Student in an Organized Health Care Education/Training Program
DX: J43.9 Emphysema, unspecified (principal); J44.9 Chronic obstructive pulmonary disease, unspecified
CPT/HCPCS: 94060; 94726; 94729

== ENCOUNTER 2025-02-02 00:56 | Outpatient (RCR) | payer MEDICAID, SELFPAY ==
[2025-01-05] MEDS: MEPOLIZUMAB 100 MG/ML SC (11:17)
[2025-01-05 11:25] LABS: Abs Immature Grans 0.02 10^3/uL (0.0-0.06); HCT 46.7 % (36.0-46.0); HGB 15.9 g/dL (11.2-15.7); Immature Grans % 0.3 %; MCH 35.3 pg (27.0-33.0); MCHC 34.0 % (32.0-36.0); MCV 104 fL (80-95); MPV 8.9 fL (8.0-11.0); Platelet Count 338 10^3/uL (130-400); RBC 4.50 10^6/uL (3.93-5.22); RDW 14.0 % (11.7-14.6); RDW-SD 53.5 fL; WBC 7.52 10^3/uL (4.4-10.8)
[2025-02-02] MEDS: MEPOLIZUMAB 100 MG/ML SC (11:18)
== END 2025-02-04 23:59 | disposition home or self-care (01) ==
LOC: INF 00:56
PROVIDERS: Student in an Organized Health Care Education/Training Program; PCP Nurse Practitioner Family; Visit Provider Hospitalist
DX: J43.9 Emphysema, unspecified (principal)
CPT/HCPCS: 36415; 96372; 82785; 85025; J2182

== ENCOUNTER 2025-03-02 00:20 | Outpatient (RCR) | payer MEDICAID, SELFPAY ==
[2025-03-02] MEDS: MEPOLIZUMAB 100 MG/ML SC (11:00)
== END 2025-03-06 23:59 | disposition home or self-care (01) ==
LOC: INF 00:20
PROVIDERS: PCP Nurse Practitioner Family; Visit Provider Hospitalist
DX: J44.89 Other specified chronic obstructive pulmonary disease (principal)
CPT/HCPCS: 96372; J2182

== ENCOUNTER 2025-03-30 00:04 | Outpatient (RCR) | payer MEDICAID, SELFPAY ==
[2025-03-30] MEDS: MEPOLIZUMAB 100 MG/ML SC (11:02)
== END 2025-04-06 23:59 | disposition home or self-care (01) ==
LOC: INF 00:04
PROVIDERS: PCP Nurse Practitioner Family; Visit Provider Hospitalist
DX: J44.89 Other specified chronic obstructive pulmonary disease (principal)
CPT/HCPCS: 96372; J2182

== ENCOUNTER 2025-04-27 00:14 | Outpatient (RCR) | payer MEDICAID, SELFPAY ==
[2025-04-27] MEDS: MEPOLIZUMAB 100 MG/ML SC (11:12)
[2025-04-27 11:14] VITALS: BP 127/79; PULSE 110; RESP 19; TEMP 35.6; O2SAT 97
== END 2025-05-06 23:59 | disposition home or self-care (01) ==
LOC: INF 00:14
PROVIDERS: PCP Nurse Practitioner Family; Visit Provider Hospitalist
DX: J44.89 Other specified chronic obstructive pulmonary disease (principal)
CPT/HCPCS: 96372; J2182

== ENCOUNTER 2025-05-25 00:27 | Outpatient (RCR) | payer MEDICAID, SELFPAY ==
[2025-05-25] MEDS: MEPOLIZUMAB 100 MG/ML SC (10:33)
== END 2025-06-06 23:59 | disposition home or self-care (01) ==
LOC: INF 00:27
PROVIDERS: PCP Nurse Practitioner Family; Visit Provider Hospitalist
DX: J44.89 Other specified chronic obstructive pulmonary disease (principal)
CPT/HCPCS: 96372; J2182